=== PATIENT | male | born 1995 | race Caucasian/White ===

== ENCOUNTER 2021-04-30 10:34 | Emergency (ER) | payer MEDICAID, SELFPAY ==
[~2021-04-30] VITALS: Ht 180.3 cm; Wt 99.8 kg
[2021-04-30 10:35] VITALS: BP_SYST 184
--- NOTE | 2021-04-30 10:38 | NUR ---
Pt. bib mom, she stated concerned son having erratic behavior, pt. taken to room 6 and states he feels anxious, while taking hx. pt. is very scattered in his conversation, not able to fully answer one question without jumping topics, tearful, stating wants to get , doesn't remember how old son is, wants to get therapy, denies any thoughts of wanting to hurt himself at this time but would not clearly answer about thoughts in past. States smokes weed daily to cope with anxiety but not working.
--- NOTE | 2021-04-30 10:40 | NUR ---
ER at bedside examining patient.
[2021-04-30] MEDS ORDERED: ALPRAZolam 0.25 MG TABLET PO ONE (10:45)
--- NOTE | 2021-04-30 10:50 | NUR ---
EKG completed POC discussed regarding medications and next step for chest xray, pt. tearful and stated thankyou for help
--- NOTE | 2021-04-30 11:06 | NUR ---
Patient transported to radiology via wheelchair, accompanied by staff.
[2021-04-30] MEDS ORDERED: ALPR0.5T PO (11:24)
[2021-04-30 11:49] LABS: BASOPHILS # (AUTO) 0.1 K/uL (0.0-0.2); BASOPHILS % (AUTO) 0.6 % (0.0-2.0); EOSINOPHILS # (AUTO) 0.1 K/uL (0.0-0.4); EOSINOPHILS % (AUTO) 0.4 % (0.0-4.0); HEMATOCRIT 45.9 % (36-54); HEMOGLOBIN 15.5 g/dL (14.0-18.0); LYMPHOCYTES # (AUTO) 2.7 K/uL (1.0-5.5); LYMPHOCYTES % (AUTO) 20.7 % (20.5-51.5); MEAN CORPUSCULAR HEMOGLOBIN 29 pg (27-31); MEAN CORPUSCULAR HGB CONC 34 % (32-36); MEAN CORPUSCULAR VOLUME 85 fL (79.0-98.0); MONOCYTES # (AUTO) 0.8 K/uL (0.0-1.0); MONOCYTES % (AUTO) 6.6 % (1.7-9.3); NEUTROPHILS # (AUTO) 9.2 K/uL (1.8-7.7); NEUTROPHILS % (AUTO) 71.7 % (40.0-70.0); PLATELET COUNT (AUTO) 221 K/uL (130-430); RED BLOOD CELL COUNT(AUTO) 5.39 MIL/uL (4.2-6.2); RED CELL DISTRIBUTION WIDTH 13.5 % (9.0-15.0); WHITE BLOOD COUNT (AUTO) 12.8 K/uL (4.8-10.8)
[2021-04-30 11:50] VITALS: BP_SYST 153
--- NOTE | 2021-04-30 11:50 | NUR ---
Patient given written and verbal discharge instructions and verbalizes understanding. ER Dr. Mistry discussed with patient the results and treatment provided. Patient in stable condition. ID arm band removed. Rx of Xanax given. Patient educated on pain management and to follow up with PMD. Pain Scale 0. Opportunity for questions provided and answered. Medication side effect fact sheet provided.
--- NOTE | 2021-04-30 11:50 | NUR ---
Dr. Mistry reviewed discharge instructions with pt. and pt. mother per his request, they plan to go to [facility] for further evaluation.
[2021-04-30 12:01] LABS: ALANINE AMINOTRANSFERASE 97 U/L (12-78); ANION GAP 9 (5-15); ASPARTATE AMINOTRANSFERASE 41 U/L (10-37); CHLORIDE 104 mmol/L (98-107); CREATININE 0.83 mg/dL (0.55-1.30); GLUCOSE 99 mg/dL (70-99); POTASSIUM 3.5 mmol/L (3.5-5.1); SODIUM SERUM 139 mmol/L (136-145); TOTAL BILIRUBIN 0.5 mg/dL (0.0-1.0); UREA NITROGEN, BLOOD 19 mg/dL (8-21)
[2021-04-30 12:03] LABS: GFR AFRICAN AMERICAN 142 mL/min (>90)
[2021-04-30 12:08] LABS: ACETAMINOPHEN < 1 ug/mL (1-30); ALCOHOL, BLOOD < 3 mg/dL (<10)
[2021-04-30 12:25] LABS: BARBITURATE, URINE NEGATIVE (NEG <=200); BENZODIAZEPINE, URINE NEGATIVE (NEG <=150); CANNABINOID, URINE POSITIVE (NEG <=50); COCAINE, URINE NEGATIVE (NEG <=150); METHAMPHETAMINES SCREEN,URINE NEGATIVE (NEG <=500); OPIATE, URINE NEGATIVE (NEG <=100); PHENCYCLIDINE SCREEN,URINE NEGATIVE (NEG <=25); UR TRICYCLIC ANTIDEPRESSANTS NEGATIVE (NEG <=300); URINE AMPHETAMINE NEGATIVE (NEG <=500); URINE METHADONE NEGATIVE (NEG <=200); URINE OXYCODONE SCREEN NEGATIVE (NEG <=100); URINE PROPOXYPHENE SCREEN NEGATIVE (NEG <=300)
== END 2021-04-30 11:50 | disposition home or self-care (01) ==
LOC: SED 10:34
DX: F41.9 Anxiety disorder, unspecified (principal); R06.02 Shortness of breath; Z79.899 Other long term (current) drug therapy; Z20.822 Contact with and (suspected) exposure to COVID-19
CPT/HCPCS: 36415; 71045; 80053; 80307; 85025; 87426; 93005; 99285; G0480; G0481; G0482